=== PATIENT | male | born 1950 | race Caucasian/White ===

== ENCOUNTER 2021-10-02 10:37 | Outpatient (REF) | payer MEDICARE, OTHER, SELFPAY ==
[2021-10-02 10:53] VITALS: BMI 31.4
[2021-10-02 10:54] VITALS: BP 106/75; PULSE 63; RESP 16; TEMP 36.7; O2SAT 97
== END 2021-10-02 10:38 | disposition home or self-care (01) ==
LOC: HO.MS 10:37
PROVIDERS: PCP Internal Medicine; Visit Provider Ophthalmology
PROC: (CPT 66821; principal; 2021-10-02 12:40)
DX: H26.491 Other secondary cataract, right eye (principal); Z96.1 Presence of intraocular lens; E78.00 Pure hypercholesterolemia, unspecified; Z79.899 Other long term (current) drug therapy; Z87.891 Personal history of nicotine dependence
CPT/HCPCS: 66821

== ENCOUNTER 2022-04-23 08:23 | Outpatient (REF) | payer MEDICARE, OTHER, SELFPAY ==
[2022-04-23 08:29] VITALS: BMI 30.9
[2022-04-23 08:30] VITALS: BP 119/69; PULSE 61; RESP 16; TEMP 36.8; O2SAT 97
== END 2022-04-23 08:24 | disposition home or self-care (01) ==
LOC: HO.MS 08:23
PROVIDERS: PCP Internal Medicine; Visit Provider Ophthalmology
PROC: (CPT 66821; principal; 2022-04-23 11:40)
DX: H26.492 Other secondary cataract, left eye (principal); E78.00 Pure hypercholesterolemia, unspecified; Z79.899 Other long term (current) drug therapy; Z87.891 Personal history of nicotine dependence
CPT/HCPCS: 66821